=== PATIENT | male | born 1985 | race Caucasian/White ===

== ENCOUNTER 2017-04-02 16:09 | Emergency (ER) | payer BC, OTHER ==
[~2017-04-02] VITALS: Ht 198.1 cm; Wt 118.0 kg
[2017-04-02 16:15] VITALS: BP 154/96
[2017-04-10] MEDS ORDERED: CHLO25CA10 PO (08:53)
== END 2017-04-02 18:00 | disposition left against medical advice (07) ==
LOC: ER 16:45
DX: Z53.21 Procedure and treatment not carried out due to patient leaving prior to being seen by health care provider (principal)

== ENCOUNTER 2017-04-06 14:50 | Inpatient (IN) | payer BC, OTHER ==
[~2017-04-06] VITALS: Ht 198.1 cm; Wt 113.4 kg
[2017-04-06 16:25] LABS: BASOPHILS % 0.5 % (0.0-2.0); HEMATOCRIT. 42.6 % (42.0-52.0); HEMOGLOBIN. 14.9 g/dL (14.0-18.0); LYMPHOCYTES % 22.3 % (20.0-50.0); MEAN CORPUSCULAR HEMOGLOBIN 30.2 pg (28.0-32.0); MEAN CORPUSCULAR VOLUME 86.1 fL (80.0-94.0); MEAN PLATELET VOLUME 7.1 fl (7.4-10.4); MONOCYTES % 5.4 % (2.0-8.0); NEUTROPHILS % 71.8 % (40.0-76.0); PLATELET 153 x1000/uL (130-400); RED BLOOD CELL COUNT 4.94 mill/uL (4.7-6.1); RED CELL DISTRIBUTION WIDTH 15.4 % (11.6-14.6)
[2017-04-06 16:37] LABS: CARBON DIOXIDE 20 mEq/L (21-32); CHLORIDE 95 mEq/L (98-107)
[2017-04-06 16:41] LABS: ETHANOL BLOOD 448 mg/dL
[2017-04-06 18:16] LABS: *AMPHETAMINES SCREEN URINE NEGATIVE (NEGATIVE); *BARBITURATES SCREEN URINE NEGATIVE (NEGATIVE); *BENZODIAZEPINES SCREEN URINE NEGATIVE (NEGATIVE); *COCAINE SCREEN URINE NEGATIVE (NEGATIVE); CANNABINOID URINE SCREEN NEGATIVE (NEGATIVE); METHADONE URINE SCREEN NEGATIVE (NEGATIVE); OPIATES URINE SCREEN NEGATIVE (NEGATIVE); PHENCYCLIDINE URINE SCREEN NEGATIVE (NEGATIVE)
[2017-04-06 18:18] LABS: CLARITY URINE CLEAR (CLEAR); COLOR URINE DARK YELLOW (YELLOW); KETONES URINE 4+ (NEGATIVE); LEUKOCYTE ESTERASE URINE TRACE (NEGATIVE); NITRITE URINE NEGATIVE (NEGATIVE); OCCULT BLOOD URINE 3+ (NEGATIVE); PH URINE 5.5 (4.5-8.0); PROTEIN URINE 4+ (NEGATIVE); SPECIFIC GRAVITY URINE 1.022 (1.005-1.030)
[2017-04-06] MEDS ORDERED: KETOROLAC 30MG/ML VIAL IV ONE (19:45)
[2017-04-06] MEDS ORDERED: ONDANSETRON HCL 4MG/2ML VIAL IV ONE (19:45)
[2017-04-06 20:30] VITALS: BP 155/82
[2017-04-06] MEDS ORDERED: HYDROCODONE/ACETAMINOPHEN 5/325MG TABLET PO PRN (21:45)
[2017-04-06] MEDS ORDERED: DOCUSATE SODIUM 100MG CAPSULE PO PRN (21:45)
[2017-04-06] MEDS ORDERED: ENOXAPARIN 40MG/0.4ML SYR SUBCUT SCH (21:45)
[2017-04-06] MEDS ORDERED: IPRATROPIUM/ALBUTEROL 0.5-3(2.5)MG/3ML NEB INH PRN (21:45)
[2017-04-06] MEDS ORDERED: GUAIFENESIN 200MG/10ML SUGAR FREE UDC PO PRN (21:45)
[2017-04-06] MEDS ORDERED: ONDANSETRON HCL 4MG/2ML VIAL IV PRN (21:45)
[2017-04-06 22:00] VITALS: BP 155/82
[2017-04-06] MEDS: FAMOTIDINE 20MG/2ML VIAL IV SCH (22:37)
[2017-04-06] MEDS: MORPHINE SULFATE 2 MG/ML CPJ (NOT FOR IM USE) IV PRN (22:41)
[2017-04-07] MEDS: SODIUM CHLORIDE 0.9% INJ 3ML FLUSH IVF SCH ×3 (00:03→15:27)
[2017-04-07] MEDS: LORAZEPAM 2MG/ML CPJ IV PRN ×4 (00:14→20:36)
[2017-04-07] MEDS: FOLIC ACID 1MG TABLET PO SCH ×2 (03:00→09:08)
[2017-04-07] MEDS: SODIUM CHLORIDE 0.9% 1,000 ML IV SCH ×2 (03:01→11:05)
[2017-04-07 04:00] VITALS: BP 127/75
[2017-04-07] MEDS: MORPHINE SULFATE 2 MG/ML CPJ (NOT FOR IM USE) IV PRN ×4 (04:35→20:38)
[2017-04-07 06:40] LABS: BASOPHILS % 0.4 % (0.0-2.0); HEMOGLOBIN. 14.7 g/dL (14.0-18.0); LYMPHOCYTES % 36.4 % (20.0-50.0); MEAN CORPUSCULAR HEMOGLOBIN 30.3 pg (28.0-32.0); MEAN CORPUSCULAR VOLUME 86.8 fL (80.0-94.0); MEAN PLATELET VOLUME 7.4 fl (7.4-10.4); MONOCYTES % 6.4 % (2.0-8.0); NEUTROPHILS % 56.8 % (40.0-76.0); PLATELET 99 x1000/uL (130-400); RED BLOOD CELL COUNT 4.84 mill/uL (4.7-6.1); RED CELL DISTRIBUTION WIDTH 14.9 % (11.6-14.6)
[2017-04-07] MEDS: PANTOPRAZOLE 40MG DR TABLET PO SCH (06:45)
[2017-04-07] MEDS: CHLORDIAZEPOXIDE 25MG CAPSULE PO SCH ×3 (06:45→20:35)
[2017-04-07 07:35] LABS: CHLORIDE 98 mEq/L (98-107)
[2017-04-07 07:59] LABS: CARBON DIOXIDE 18 mEq/L (21-32); HDL CHOLESTEROL 65 mg/dL (40-59); LDL CHOLESTEROL 158 mg/dL (5-100)
[2017-04-07 08:00] VITALS: BP 147/88
[2017-04-07] MEDS: THIAMINE HCL 100MG TABLET PO SCH (09:08)
[2017-04-07] MEDS: ONDANSETRON HCL 4MG/2ML VIAL IV PRN ×2 (10:47→18:38)
[2017-04-07 12:00] VITALS: BP 156/91
[2017-04-07 16:00] VITALS: BP 181/100
[2017-04-07] MEDS: FAMOTIDINE 20MG/2ML VIAL IV SCH (20:35)
[2017-04-07] MEDS ORDERED: ENOXAPARIN 30MG/0.3ML SYR SUBCUT SCH (21:00)
[2017-04-08] MEDS: SODIUM CHLORIDE 0.9% 1,000 ML IV SCH ×2 (00:25→13:45)
[2017-04-08] MEDS: ONDANSETRON HCL 4MG/2ML VIAL IV PRN ×3 (01:26→17:56)
[2017-04-08] MEDS: MORPHINE SULFATE 2 MG/ML CPJ (NOT FOR IM USE) IV PRN ×3 (01:26→09:14)
[2017-04-08] MEDS: LORAZEPAM 2MG/ML CPJ IV PRN ×5 (01:27→22:20)
[2017-04-08] MEDS: CHLORDIAZEPOXIDE 25MG CAPSULE PO SCH ×3 (06:00→22:20)
[2017-04-08 06:21] VITALS: BP 157/90
[2017-04-08 06:35] LABS: HEMATOCRIT 44.6 % (42.0-52.0); HEMOGLOBIN 15.5 g/dL (14.0-18.0); MEAN CORPUSCULAR HEMOGLOBIN 30.3 pg (28.0-32.0); MEAN CORPUSCULAR VOLUME 87.4 fL (80.0-94.0); PLATELET 77 x1000/uL (130-400); RED CELL DISTRIBUTION WIDTH 15.2 % (11.6-14.6)
[2017-04-08] MEDS: PANTOPRAZOLE 40MG DR TABLET PO SCH (07:20)
[2017-04-08 08:00] VITALS: BP 138/68
[2017-04-08] MEDS: FOLIC ACID 1MG TABLET PO SCH (09:14)
[2017-04-08] MEDS: THIAMINE HCL 100MG TABLET PO SCH (09:14)
[2017-04-08 11:30] VITALS: BP 139/90
[2017-04-08 12:23] LABS: CARBON DIOXIDE 18 mEq/L (21-32); CHLORIDE 99 mEq/L (98-107)
[2017-04-08 12:24] LABS: PARTIAL THROMBOPLASTIN TIME 26.4 sec (23.4-31.0); PROTHROMBIN TIME 10.7 sec (9.4-11.6)
[2017-04-08 12:26] LABS: BASOPHILS % 0.6 % (0.0-2.0); EOSINOPHILS % 0.3 % (0.0-5.0); HEMATOCRIT. 44.8 % (42.0-52.0); HEMOGLOBIN. 15.5 g/dL (14.0-18.0); LYMPHOCYTES % 23.9 % (20.0-50.0); MEAN CORPUSCULAR HEMOGLOBIN 30.3 pg (28.0-32.0); MEAN CORPUSCULAR VOLUME 87.3 fL (80.0-94.0); MEAN PLATELET VOLUME 7.8 fl (7.4-10.4); NEUTROPHILS % 69.2 % (40.0-76.0); PLATELET 76 x1000/uL (130-400); RED BLOOD CELL COUNT 5.13 mill/uL (4.7-6.1); RED CELL DISTRIBUTION WIDTH 15.1 % (11.6-14.6)
[2017-04-08] MEDS: MORPHINE SULFATE 4 MG/ML CPJ (NOT FOR IM USE) IV PRN ×3 (14:39→23:36)
[2017-04-08 16:17] VITALS: BP 132/83
[2017-04-08 20:00] VITALS: BP 157/99
[2017-04-09] VITALS: BP 150/92
[2017-04-09] MEDS ORDERED: METO25TA6 PO (00:38)
[2017-04-09] MEDS: SODIUM CHLORIDE 0.9% INJ 3ML FLUSH IVF SCH ×4 (01:24→22:54)
[2017-04-09 06:00] VITALS: BP 143/94
[2017-04-09] MEDS: SODIUM CHLORIDE 0.9% 1,000 ML IV SCH ×2 (06:01→22:54)
[2017-04-09] MEDS: MORPHINE SULFATE 4 MG/ML CPJ (NOT FOR IM USE) IV PRN ×4 (06:09→20:11)
[2017-04-09] MEDS: CHLORDIAZEPOXIDE 25MG CAPSULE PO SCH ×3 (06:09→22:48)
[2017-04-09] MEDS: PANTOPRAZOLE 40MG DR TABLET PO SCH (06:09)
[2017-04-09] MEDS: LORAZEPAM 2MG/ML CPJ IV PRN ×3 (06:09→22:49)
[2017-04-09 08:00] VITALS: BP 91/52
[2017-04-09] MEDS: THIAMINE HCL 100MG TABLET PO SCH (09:30)
[2017-04-09] MEDS: FOLIC ACID 1MG TABLET PO SCH (09:30)
[2017-04-09] MEDS: ONDANSETRON HCL 4MG/2ML VIAL IV PRN ×2 (11:05→20:10)
[2017-04-09 12:00] VITALS: BP 152/98
[2017-04-09 16:00] VITALS: BP 127/88
[2017-04-09 20:00] VITALS: BP 128/57
[2017-04-09 21:09] LABS: BASOPHILS % 0.4 % (0.0-2.0); HEMATOCRIT. 44.3 % (42.0-52.0); HEMOGLOBIN. 15.4 g/dL (14.0-18.0); LYMPHOCYTES % 35.6 % (20.0-50.0); MEAN CORPUSCULAR HEMOGLOBIN 30.2 pg (28.0-32.0); MEAN CORPUSCULAR VOLUME 87.1 fL (80.0-94.0); MEAN PLATELET VOLUME 8.7 fl (7.4-10.4); MONOCYTES % 6.3 % (2.0-8.0); NEUTROPHILS % 55.7 % (40.0-76.0); PLATELET 79 x1000/uL (130-400); RED BLOOD CELL COUNT 5.09 mill/uL (4.7-6.1); RED CELL DISTRIBUTION WIDTH 14.9 % (11.6-14.6)
[2017-04-09 21:23] LABS: CARBON DIOXIDE 23 mEq/L (21-32); CHLORIDE 99 mEq/L (98-107)
[2017-04-10 04:00] VITALS: BP 131/77
[2017-04-10] MEDS: MORPHINE SULFATE 4 MG/ML CPJ (NOT FOR IM USE) IV PRN (04:50)
[2017-04-10] MEDS: PANTOPRAZOLE 40MG DR TABLET PO SCH (06:54)
[2017-04-10] MEDS: CHLORDIAZEPOXIDE 25MG CAPSULE PO SCH (06:54)
[2017-04-10] MEDS: SODIUM CHLORIDE 0.9% INJ 3ML FLUSH IVF SCH (06:54)
[2017-04-10] MEDS: SODIUM CHLORIDE 0.9% 1,000 ML IV SCH (06:54)
[2017-04-10 08:00] VITALS: BP 118/73
[2017-04-10] MEDS: FOLIC ACID 1MG TABLET PO SCH (08:30)
[2017-04-10] MEDS: LORAZEPAM 2MG/ML CPJ IV PRN (08:30)
[2017-04-10] MEDS: THIAMINE HCL 100MG TABLET PO SCH (08:30)
[2017-04-10] MEDS ORDERED: POTASSIUM CHLORIDE 20MEQ TABLET SR PO NR (08:53)
[2017-04-10] MEDS ORDERED: CHLO25CA10 PO (08:53)
[2017-04-10 10:24] LABS: BASOPHILS % 0.6 % (0.0-2.0); EOSINOPHILS % 2.1 % (0.0-5.0); HEMATOCRIT. 43.7 % (42.0-52.0); HEMOGLOBIN. 15.1 g/dL (14.0-18.0); LYMPHOCYTES % 32.9 % (20.0-50.0); MEAN CORPUSCULAR HEMOGLOBIN 29.7 pg (28.0-32.0); MEAN PLATELET VOLUME 8.9 fl (7.4-10.4); MONOCYTES % 7.4 % (2.0-8.0); PLATELET 84 x1000/uL (130-400); RED BLOOD CELL COUNT 5.08 mill/uL (4.7-6.1); RED CELL DISTRIBUTION WIDTH 15.3 % (11.6-14.6)
[2017-04-10 10:44] LABS: CARBON DIOXIDE 26 mEq/L (21-32); CHLORIDE 98 mEq/L (98-107)
[2017-04-10 12:54] VITALS: BP 118/73
== END 2017-04-10 13:15 | disposition home or self-care (01) | DRG 917 ==
LOC: ER 14:50 → 6EST 19:30 → EDBEDREQ 19:31 → EDBEDREQTM 19:31 → ENRESERV 19:52
PROVIDERS: ADMIT Family Medicine; ATTEND Family Medicine
DX: T51.0X1A Toxic effect of ethanol, accidental (unintentional), initial encounter (principal); K85.90 Acute pancreatitis without necrosis or infection, unspecified; K76.0 Fatty (change of) liver, not elsewhere classified; F10.239 Alcohol dependence with withdrawal, unspecified; R16.0 Hepatomegaly, not elsewhere classified; K76.1 Chronic passive congestion of liver; F10.229 Alcohol dependence with intoxication, unspecified; E66.9 Obesity, unspecified; E86.0 Dehydration; I10 Essential (primary) hypertension; K59.00 Constipation, unspecified; F41.9 Anxiety disorder, unspecified; E78.5 Hyperlipidemia, unspecified; Z90.49 Acquired absence of other specified parts of digestive tract; Z68.28 Body mass index [BMI] 28.0-28.9, adult; Y92.89 Other specified places as the place of occurrence of the external cause
CPT/HCPCS: 36415; 76705; 80053; 80061; 80076; 80305; 81001; 83690; 85025; 85027; 85610; 85730; 96374; 96375; 97162; 99285; C1893; G0482; J1650; J1885; J2060; J2270; J2405; J3490; J7030